=== PATIENT | female | born 1995 ===

== ENCOUNTER 2017-10-20 07:01 | Inpatient (IN) | payer MEDICAID, OTHER ==
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
[2017-10-20 08:45] LABS: BASO # 0.1 K/uL (0.0-0.2); BASO % 0.7 % (0.0-2.0); EOS % 0.2 % (0.0-4.0); HEMOGLOBIN 14.4 g/dL (12.0-16.0); LYMPH # 2.1 K/uL (1.0-4.3); LYMPH % 25.5 % (20.0-40.0); MEAN CELL VOLUME 90.8 fl (81.0-99.0); MEAN CORPUSCULAR HEMOGLOBIN 31.1 pg (27.0-31.0); MEAN CORPUSCULAR HGB CONC 34.3 g/dL (33.0-37.0); MEAN PLATELET VOLUME 8.8 fl (7.2-11.7); MONO # 0.7 K/uL (0.0-0.8); MONO % 8.9 % (0.0-10.0); NEUT # 5.4 K/uL (1.8-7.0); NEUT % 64.7 % (50.0-75.0); NRBC % 0.1 % (0.0-0.0); RBC 4.61 Mil/uL (3.80-5.20); RED CELL DISTRIBUTION WIDTH 14.6 % (11.5-14.5); WHITE BLOOD COUNT 8.4 K/uL (4.8-10.8)
[2017-10-20 08:55] LABS: ALB/GLOB RATIO 1.3 (1.0-2.1); ALBUMIN 4.6 g/dL (3.5-5.0); ALT/SGPT 30 U/L (9-52); AST/SGOT 43 U/L (14-36); BLOOD UREA NITROGEN 5 mg/dl (7-17); CALCIUM 9.3 mg/dL (8.4-10.2); GFR AFRICAN-AMERICAN > 60; GFR NON-AFRICAN AMERICAN > 60
[2017-10-20 09:08] LABS: ACETAMINOPHEN < 10.0 ug/ml (10.0-30.0); SALICYLATE < 1.0 mg/dl
[2017-10-20 09:13] LABS: BARBITURATES, UR NEGATIVE (NEGATIVE); BENZODIAZEPINES, UR NEGATIVE (NEGATIVE); OPIATES, UR NEGATIVE (NEGATIVE); PHENCYCLIDINE, UR NEGATIVE (NEGATIVE)
[2017-10-20 12:22] VITALS: O2SAT 98
[2017-10-20] MEDS ORDERED: Magnesium Hydroxide Susp 30 ml UD PO PRN (15:36)
[2017-10-20] MEDS ORDERED: DiphenhydrAMINE 50 mg/ml Inj IM PRN (15:36)
[2017-10-20] MEDS ORDERED: Alum-Mag Hydrox-Simethicone Susp (30 mL) PO PRN (15:36)
--- NOTE | 2017-10-20 15:59 | CP.PCM.CON ---
History of Present Illness - History of Present Illness History of Present Illness: This is a 22 year old female with no significant past medical history who is admitted to inpatient psychiatry today after expressing suicidal ideation to police. The patient denies any medical problems or recent illnesses. She admits to attempting to cut herself with a pen along both forearms as well as her neck in a suicidal attempts. She states that she fell to the ground yesterday and hit her head on her left side, but notes that she has only a minor headache currently. She denies any LOC, dizziness, or blurry vision since the fall. Patient denies chest pain, shortness of breath, fevers, chills, nausea, vomiting , diarrhea. All of the patient's questions were answered at the bedside. Review of Systems - Review of Systems Review of Systems: A 12 point review of systems was conducted and found to be negative other than in HPI. Past Patient History - Infectious Disease Hx of Infectious Diseases: None - Past Medical History & Family History Past Medical History?: No Past Family History: Reviewed and not pertinent - Past Social History Smoking Status: Current Some Days Smoker Alcohol: Occasional Drugs: Cannabis - PULMONARY Hx Respiratory Disorders: No - NEUROLOGICAL Hx Neurological Disorder: No - PSYCHIATRIC Hx Psychophysiologic Disorder: (unknown) Hx Substance Use: Yes - SURGICAL HISTORY Hx Surgeries: No - ANESTHESIA Hx Anesthesia: No Meds Allergies/Adverse Reactions: Allergies Allergy/AdvReac Type Severity Reaction Status Date / Time kiwi Allergy RASH Verified 10/20/17 07:36 latex Allergy ANAPHYLAXIS Verified 10/20/17 14:36 Penicillins Allergy ANAPHYLAXIS Verified 10/20/17 07:36 Pork/Porcine Containing Allergy ANAPHYLAXIS Verified 10/20/17 07:36 Products Physical Exam - Additional Findings Additional findings: Physical exam: Constitutional- cooperative, awake, alert Head- NCAT, PERRL Eye- PERRL, EOMI ENT- normal exam, MMM. Neck- normal inspection, supple, no JVD Respiratory- CTAB, no wheezes rales rhonchi Cardiovascular- RRR, +S1, +S2 no MRG GI/Abdominal- normal bowel sounds, soft, no mass, no hsm Skin- warm, dry Extremities Exam- + Superficial linear abrasion to flexor aspect of right forearm. 6 inch erythematous abrasion to mid thoracic region, no open wound. Multiple abrasions and superficial bruising to both arms and thighs anteriorly. normal capillary refill, normal inspection Neurological Exam- alert, awake, oriented Psych- normal mood, normal affect Results - Vital Signs Recent Vital Signs: Last Vital Signs Temp 98.9 F 10/20/17 12:20 Pulse 69 10/20/17 12:20 Resp 16 10/20/17 12:20 BP 98/56 L 10/20/17 12:20 Pulse Ox 98 10/20/17 12:20 - Labs Result Diagrams: 10/20/17 08:26 10/20/17 08:26 Labs: Laboratory Results - last 24 hr 10/20/17 10/20/17 10/20/17 08:26 08:26 08:26 WBC RBC Hgb Hct MCV MCH MCHC RDW Plt Count MPV Neut % (Auto) Lymph % (Auto) [place] % (Auto) Eos % (Auto) Baso % (Auto) Neut # (Auto) Lymph # (Auto) [place] # (Auto) Eos # (Auto) Baso # (Auto) Sodium 146 Potassium 4.1 Chloride 109 H Carbon Dioxide 21 L Anion Gap 20 BUN 5 L Creatinine 0.8 Est GFR ( Amer) > 60 Est GFR (Non-Af Amer) > 60 Random Glucose 92 Calcium 9.3 Total Bilirubin 0.5 AST 43 H ALT 30 Alkaline Phosphatase 76 Total Protein 8.1 Albumin 4.6 Globulin 3.5 Albumin/Globulin Ratio 1.3 Salicylates < 1.0 Urine Opiates Screen Negative Urine Methadone Screen Negative Acetaminophen < 10.0 L Ur Barbiturates Screen Negative Ur Phencyclidine Scrn Negative Ur Amphetamines Screen Negative U Benzodiazepines Scrn Negative U Oth Cocaine Metabols Negative U Cannabinoids Screen Positive H Alcohol, Quantitative 162 H HIV-1 Ab Rapid Screen 10/20/17 10/20/17 08:26 08:26 WBC 8.4 RBC 4.61 Hgb 14.4 Hct 41.9 MCV 90.8 MCH 31.1 H MCHC 34.3 RDW 14.6 H Plt Count 237 MPV 8.8 Neut % (Auto) 64.7 Lymph % (Auto) 25.5 [place] % (Auto) 8.9 Eos % (Auto) 0.2 Baso % (Auto) 0.7 Neut # (Auto) 5.4 Lymph # (Auto) 2.1 [place] # (Auto) 0.7 Eos # (Auto) 0.0 Baso # (Auto) 0.1 Sodium Potassium Chloride Carbon Dioxide Anion Gap BUN Creatinine Est GFR ( Amer) Est GFR (Non-Af Amer) Random Glucose Calcium Total Bilirubin AST ALT Alkaline Phosphatase Total Protein Albumin Globulin Albumin/Globulin Ratio Salicylates Urine Opiates Screen Urine Methadone Screen Acetaminophen Ur Barbiturates Screen Ur Phencyclidine Scrn Ur Amphetamines Screen U Benzodiazepines Scrn U Oth Cocaine Metabols U Cannabinoids Screen Alcohol, Quantitative HIV-1 Ab Rapid Screen Non reactive Assessment & Plan - Assessment and Plan (Free Text) Plan: This is a 22 year old female with no significant past medical history who is admitted to inpatient psychiatry today after expressing suicidal ideation to police. The patient denies any medical problems or recent illnesses. She admits to attempting to cut herself with a pen along both forearms as well as her neck in a suicidal attempts. She states that she fell to the ground yesterday and hit her head on her left side, but notes that she has only a minor headache currently. She denies any LOC, dizziness, or blurry vision since the fall. Patient denies chest pain, shortness of breath, fevers, chills, nausea, vomiting , diarrhea. All of the patient's questions were answered at the bedside. 1) Suicidal ideation, depression - management as per psych 2) Superficial abrasions as above - acute - no active bleeding or open wound - monitor 3) ETOH abuse - acute - management as per psych 4) Cannabis abuse - acute - management as per psych
--- NOTE | 2017-10-20 16:26 | PCM.BM ---
Treatment Plan Problems - Problems identified on initial assessmt Hopelessness/Helplessness Date Initiated: 10/20/17 Time Initiated: 12:00 Assessment reference: NA Status: Active Substance Use- Alcohol - Detox Date Initiated: 10/20/17 Time Initiated: 12:00 Assessment reference: NA Status: Active Treatment assets and liabiliti Patient Assests: adapts well, cooperative, educated, motivated, ADL independent , physically healthy Patient Liabilities: relationship conflicts, substance abuse - Milieu Protocol Maintain good personal hygiene: every shift Encourage regular showers, every shift Remind patient to perform daily oral care, every shift Assist patient to perform ADL's Maintain personal safety: every shift Educate patient to report safety concerns to staff, every shift Monitor environment for contraband/sharps Medication safety: Monitor for expected outcome, potential side effects: every shift, Assess barriers to learning: every shift, Assess readiness for medication education: every shift
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
[2017-10-21 09:35] VITALS: RESP 18
--- NOTE | 2017-10-21 10:46 | PCM.BM ---
Treatment Plan Problems - Problems identified on initial assessmt Hopelessness/Helplessness Date Initiated: 10/20/17 Time Initiated: 12:00 Assessment reference: NA Status: Active Substance Use- Alcohol - Detox Date Initiated: 10/20/17 Time Initiated: 12:00 Assessment reference: NA Status: Active Ineffective Family Coping Date Initiated: 10/21/17 Time Initiated: 10:31 Assessment reference: NA Status: Active Treatment assets and liabiliti Patient Assests: adapts well, cooperative, educated, motivated, ADL independent , physically healthy Patient Liabilities: relationship conflicts, substance abuse - Milieu Protocol Maintain good personal hygiene: every shift Encourage regular showers, every shift Remind patient to perform daily oral care, every shift Assist patient to perform ADL's Maintain personal safety: every shift Educate patient to report safety concerns to staff, every shift Monitor environment for contraband/sharps Medication safety: Monitor for expected outcome, potential side effects: every shift, Assess barriers to learning: every shift, Assess readiness for medication education: every shift Milieu Narrative: inpt adm. per attending MD vital signs and clinical observation per protocol and per clinical status prns per unit protocol hospitalist consult etoh procotol prn review mirtazepine-pt verbally agreeable will start 7.5mg po hs, review sertraline 25mg po daily ptsd-possible excitation possible sedation possible suicidal ideation-get up slowly falls precautions review use of catapress 0.1mg which is cardiac medication but has been shown to assist with night wong review possible decreased h/r possible decreased b/p- get up slowly falls precautions, do not give if b/p less 90/60 or h/r less 60 bpm discharge planning in progress pt expresses interest in opd psychotherapy and continuing of medications Discharge/Continuing Care - Treatment Team Participation Patient/Family/SO Statement: inpt adm. per attending MD vital signs and clinical observation per protocol and per clinical status prns per unit protocol hospitalist consult etoh procotol prn review mirtazepine-pt verbally agreeable will start 7.5mg po hs, review sertraline 25mg po daily ptsd-possible excitation possible sedation possible suicidal ideation-get up slowly falls precautions review use of catapress 0.1mg which is cardiac medication but has been shown to assist with night wong review possible decreased h/r possible decreased b/p- get up slowly falls precautions, do not give if b/p less 90/60 or h/r less 60 bpm discharge planning in progress pt expresses interest in opd psychotherapy and continuing of medications
--- NOTE | 2017-10-21 18:49 | PCM.PYCHPN ---
Psychiatric Progress Note - Psychiatric Progress Note Patient seen today, length of contact: chart reviewed case discussed with team Patient Chief Complaint: saw family today reported as positive. sleeping and eating improving as is mood. likes current medications adherent denies notable side effects. Problems Identified/Issues Discussed: alteration in mood, coping, night wong Medical Problems: per chart Diagnostic Results: per psychiatry per medicine per nursing per social work per recreational therapy DSM 5 Symptoms Update: improving mood Medication Change: No Medical Record Reviewed: Yes Consults ordered or reviewed: pt seen by hospitalist Mental Status Examination - Cognitive Function Orientation: Person, Place, Situation, Time - Mood Mood: Depressed, Anxious Additional comments: reports lessened - Affect Affect: Broad, Depressed - Speech Speech: Appropriate - Formal Thought Process Formal Thought Process: No Impairment - Homicidal Ideation Homicidal Ideation: No Goal/Treatment Plan - Goal/Treatment Plan Progress Toward Problem(s) and Goals/Treatment Plan: inpt milieu adjust meds per status get up slowly falls precautions mouth care discharge planning in progress pt expresses interest in opd psychotherapy and continuing of medications Estimated Date of D/C: 10/24/17 - Smoking Cessation Smoking Cessation Initiated: No Reason for not providing: defers
--- NOTE | 2017-10-21 19:04 | CARD ---
APPROVED REPORT Date of service: 10/20/2017 EKG Measurement Heart [id number] <Conclusion> Normal sinus rhythm Normal ECG
[2017-10-22 08:56] LABS: T4 7.47 ug/dl (5.5-11.0)
[2017-10-22 10:02] LABS: HEPATITIS B SURFACE AG Negative (NEGATIVE)
[2017-10-22 10:07] LABS: HEPATITIS A IGM NEGATIVE (NEGATIVE); HEPATITIS B CORE AB NEGATIVE (NEGATIVE)
[2017-10-22 10:19] LABS: HEPATITIS C ANTIBODY NEGATIVE (NEGATIVE)
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
--- NOTE | 2017-10-23 13:59 | PCM.PYCHPN ---
Psychiatric Progress Note - Psychiatric Progress Note Patient seen today, length of contact: chart reviewed case discussed with team Patient Chief Complaint: I feel better with the medications Problems Identified/Issues Discussed: pt evaluated , reported feeling less anxious, improved sleep and appetite with current medications,no reported side effects compliant with treatment , attending groups, discussed increasing remeron to 15mg qhs pt denied any current thoughts of self harm, denied perceptual disturbances DSM 5 Symptoms Update: post traumatic stress disorder depression alcohol abuse cannabis abuse Medication Change: No Medical Record Reviewed: Yes Mental Status Examination - Cognitive Function Orientation: Person, Place, Situation, Time Attention: WNL Concentration: WNL Association: WNL Fund of Knowledge: [facility] Decription of patient's judgement and insights: partial insight fair judgment - Mood Mood: Depressed, Anxious - Affect Affect: Depressed - Speech Speech: Appropriate - Formal Thought Process Formal Thought Process: No Impairment Psychotic Thoughts and Behaviors: pt denied psychotic symptoms, non elicited - Suicidal Ideation Suicidal Ideation: No - Homicidal Ideation Homicidal Ideation: No Goal/Treatment Plan - Goal/Treatment Plan Need for Continued Stay: Severe depression anxiety, Discharge may exacerbated symptoms, Severe functional impairment Progress Toward Problem(s) and Goals/Treatment Plan: increase remeron 15mg qhs/ prazosin 1mg qhs/ motivational group and supportive therapy Estimated Date of D/C: 10/24/17
[2017-10-24 09:18] VITALS: TEMP 97.9
--- NOTE | 2017-10-24 14:10 | PCM.PYCHPN ---
Psychiatric Progress Note - Psychiatric Progress Note Patient seen today, length of contact: chart reviewed case discussed with team Patient Chief Complaint: I now know what I need to do for myself Problems Identified/Issues Discussed: pt evaluated , reported feeling less anxious, improved sleep and appetite with current medications,no reported side effects compliant with treatment ,no reported side effects with increasing dose of remeron, pt showing insight into illness agrees to continue with therapy on discharge pt denied any current thoughts of self harm, denied perceptual disturbances DSM 5 Symptoms Update: post traumatic stress disorder borderline personality disorder Medication Change: No Medical Record Reviewed: Yes Mental Status Examination - Cognitive Function Orientation: Person, Place, Situation, Time Attention: WNL Concentration: WNL Association: WNL Fund of Knowledge: WN Decription of patient's judgement and insights: partial insight fair judgment - Mood Mood: Anxious - Affect Affect: Broad - Speech Speech: Appropriate - Formal Thought Process Formal Thought Process: No Impairment Psychotic Thoughts and Behaviors: pt denied psychotic symptoms, non elicited - Suicidal Ideation Suicidal Ideation: No - Homicidal Ideation Homicidal Ideation: No Goal/Treatment Plan - Goal/Treatment Plan Need for Continued Stay: Severe depression anxiety, Discharge may exacerbated symptoms, Severe functional impairment Progress Toward Problem(s) and Goals/Treatment Plan: i remeron 15mg qhs/ prazosin 1mg qhs/ motivational group and supportive therapy Estimated Date of D/C: 10/24/17
[2017-10-25 09:14] VITALS: BP 141/64; PULSE 88
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
== END 2017-10-25 14:25 | disposition home or self-care (01) | DRG 885 ==
LOC: H.ER 07:01 → H.ERHOLD 10:00 → H.PSYCH 13:04
PROVIDERS: ADMIT Psychiatry & Neurology Psychiatry; ATTEND Psychiatry & Neurology Psychiatry
PROC: GZHZZZZ Group Psychotherapy (ICD-10-PCS; principal; 2017-10-20)
PROC: GZ58ZZZ Individual Psychotherapy, Cognitive-Behavioral (ICD-10-PCS; 2017-10-20)
PROC: HZ52ZZZ Individual Psychotherapy for Substance Abuse Treatment, Cognitive-Behavioral (ICD-10-PCS; 2017-10-20)
DX: F32.1 Major depressive disorder, single episode, moderate (principal); R45.851 Suicidal ideations; F10.129 Alcohol abuse with intoxication, unspecified; Y90.6 Blood alcohol level of 120-199 mg/100 ml; F12.10 Cannabis abuse, uncomplicated; F43.10 Post-traumatic stress disorder, unspecified; F60.3 Borderline personality disorder; Z91.410 Personal history of adult physical and sexual abuse; F17.210 Nicotine dependence, cigarettes, uncomplicated; Z88.0 Allergy status to penicillin; Z91.040 Latex allergy status